=== PATIENT | female | born 1985 | race African-American/Black ===

== ENCOUNTER 2022-03-24 14:25 | Emergency (ER) | payer OTHER ==
[2022-03-24 15:16] VITALS: BP 107/88; PULSE 76; RESP 16; TEMP 97.5; BMI 21.6
== END 2022-03-24 18:00 | disposition home or self-care (01) ==
LOC: JER 14:25
DX: H55.00 Unspecified nystagmus (principal)
CPT/HCPCS: 99283-25; 99285-25

== ENCOUNTER 2022-03-24 19:03 | Inpatient (IN) | payer OTHER ==
[2022-03-24] MEDS ORDERED: MAGNESIUM HYDROX 2400MG/30ML ORAL SUSPENSION 30 ML CUP PO PRN (20:35)
[2022-03-24] MEDS ORDERED: IBUPROFEN 600 MG TABLET (FP) PO PRN (20:35)
[2022-03-24] MEDS ORDERED: DICYCLOMINE HCL 10 MG CAPSULE PO PRN (20:35)
[2022-03-24] MEDS ORDERED: MELATONIN 5 MG TABLETS PO PRN (20:35)
[2022-03-24] MEDS ORDERED: ONDANSETRON *ODT* 4 MG TABLET SL PRN (20:35)
[2022-03-24] MEDS ORDERED: guaiFENesin 200 MG/10 ML 10 ML UNIT-DOSE CUPS PO PRN (20:35)
[2022-03-24] MEDS ORDERED: P-EPHED 60MG/TRIPROLIDI 2.5MG TABLET PO PRN (20:35)
[2022-03-24] MEDS ORDERED: BISMUTH SUBSALICYLATE 524 MG/30 ML PO PRN (20:35)
[2022-03-24] MEDS ORDERED: ACETAMINOPHEN 325 MG TABLET (FP) PO PRN ×2 (20:35)
[2022-03-24] MEDS ORDERED: BENZOCAINE/MENTHOL (CHLORASEPTIC ) LOZENGE MM PRN (20:35)
[2022-03-24] MEDS ORDERED: POLYETHYLENE GLYCOL (HEALTHYLAX) 3350 17 GM PACKET PO PRN (20:35)
[2022-03-24] MEDS ORDERED: METHOCARBAMOL 500 MG TABLET PO PRN (20:35)
[2022-03-24] MEDS ORDERED: IBUPROFEN 400 MG TABLET (FP) PO PRN (20:35)
[2022-03-24] MEDS ORDERED: MAG HYDROX/AL HYDROX/SIMETH 30 ML UNIT-DOSE CUP PO PRN (20:35)
[2022-03-24] MEDS ORDERED: hydrOXYzine PAMOATE 25 MG CAPSULE (FP) PO PRN (20:35)
[2022-03-24] MEDS ORDERED: LOPERAMIDE HCL 2 MG CAPSULE PO PRN (20:35)
[2022-03-24] MEDS ORDERED: diazePAM 5 MG TABLET PO PRN (20:41)
[2022-03-24 21:32] VITALS: BMI 20.9
[2022-03-24] MEDS: THIAMINE HCL 100 MG TABLET (FP) PO SCH (22:41)
[2022-03-24] MEDS: diazePAM 5 MG TABLET PO SCH (22:49)
[2022-03-25] MEDS: diazePAM 5 MG TABLET PO SCH ×4 (06:18→22:40)
[2022-03-25] MEDS: THIAMINE HCL 100 MG TABLET (FP) PO SCH ×3 (06:21→22:40)
[2022-03-25] MEDS ORDERED: PRENATAL VITAMINS W/ FOLIC ACID TABLET (FP) PO SCH (10:00)
[2022-03-25 11:16] LABS: HEMATOCRIT 32.7 % (32.4-45.2); HEMOGLOBIN 10.8 GM/dL (10.7-15.3); MCH 30.5 pg (25.7-33.7); MCHC 32.9 g/dl (32.0-36.0); MEAN CELL VOLUME 92.7 fl (80-96); MEAN PLT VOLUME 8.2 fl (7.5-11.1); PLATELET COUNT 187 10^3/uL (134-434); RBC 3.53 M/mm3 (3.60-5.2); RDW 16.5 % (11.6-15.6); WHITE BLOOD COUNT 2.8 K/mm3 (4.0-10.0)
[2022-03-25 11:44] LABS: ALBUMIN 3.9 g/dl (3.4-5.0); BLOOD UREA NITROGEN 4.8 mg/dL (7-18)
[2022-03-25 11:46] LABS: CREATININE 0.6 mg/dL (0.55-1.3)
[2022-03-25 11:49] LABS: BILIRUBIN,TOTAL 0.4 mg/dL (0.2-1); TOT PROT 7.8 g/dl (6.4-8.2)
[2022-03-25] MEDS ORDERED: LITHIUM CARBONATE 300 MG CAPSULE PO SCH (22:00)
[2022-03-26] MEDS ORDERED: diazePAM 5 MG TABLET PO SCH (06:00)
[2022-03-26] MEDS: THIAMINE HCL 100 MG TABLET (FP) PO SCH ×2 (06:07→06:35)
[2022-03-26] MEDS ORDERED: NICOTINE POLACRILEX 2 MG GUM BUC PRN (06:19)
[2022-03-26 06:36] VITALS: BP 112/75; PULSE 81; RESP 17; TEMP 98
[2022-03-26] MEDS ORDERED: NICOTINE 14 MG/24 HOURS TOPICAL PATCH TD SCH (10:00)
[2022-03-27] MEDS ORDERED: diazePAM 5 MG TABLET PO SCH (06:00)
[2022-03-28] MEDS ORDERED: diazePAM 5 MG TABLET PO ONE (06:00)
== END 2022-03-26 09:00 | disposition left against medical advice (07) | DRG 770 ==
LOC: YASAS 19:03 → Y6N 20:45
PROVIDERS: ADMIT Allergy & Immunology; ATTEND Surgery
PROC: HZ42ZZZ Group Counseling for Substance Abuse Treatment, Cognitive-Behavioral (ICD-10-PCS; principal; 2022-03-24)
DX: F10.230 Alcohol dependence with withdrawal, uncomplicated (principal); F17.290 Nicotine dependence, other tobacco product, uncomplicated; F10.280 Alcohol dependence with alcohol-induced anxiety disorder; F10.282 Alcohol dependence with alcohol-induced sleep disorder; F41.9 Anxiety disorder, unspecified; F32.A Depression, unspecified; F60.3 Borderline personality disorder; F45.22 Body dysmorphic disorder
CPT/HCPCS: 36415; 80053; 81025; 85027; 86780; C9803-CS; U0003; U0005